=== PATIENT | female | born 1945 | race Caucasian/White ===

== ENCOUNTER 2016-09-14 06:55 | Emergency (ER) | payer MEDICARE, OTHER ==
[2016-09-14] MEDS ORDERED: NOREPINEPHRINE 4 MG/4 ML AMP ONE (06:56)
[2016-09-14] MEDS ORDERED: EPINEPHrine 1MG/10ML SYRINGE 1.5IN ONE (06:56)
[2016-09-14] MEDS ORDERED: SODIUM BICARBONATE 4.2% INJ 10 ML SYRINGE ONE (06:56)
[2016-09-14] MEDS ORDERED: CALCIUM CHLORIDE 10% 1 GM/10 ML SYR ONE (06:56)
[2016-09-14 07:26] LABS: ABG BASE EXCESS -30.7 (-2.0-2.0); ABG DEVICE NASAL CANN; ABG HCO3 7.5 MEQ/L (22.0-26.0); ABG PARTIAL PRESSURE O2 120.3 mmHg (75.0-100.0); ABG TOTAL CO2 9.8 MEQ/L (23.0-31.0)
[2016-09-14] MEDS ORDERED: PHENYLEPHRINE INJ 10MG/ML VIAL (J2370) As Ordered ONE (07:28)
[2016-09-14 07:29] LABS: ABG PARTIAL PRESSURE CO2 74.9 mmHg (35.0-45.0); ABG pH (ARTERIAL) 6.617 UNITS (7.350-7.450)
[2016-09-14 07:43] LABS: CALCIUM LEVEL 8.1 MG/DL (8.8-10.2); CREATININE FOR GFR 1.19 MG/DL (0.55-1.02); GLOMERULAR FILTRATION RATE 47.6 (>39); POTASSIUM SERUM 3.9 MEQ/L (3.5-5.1)
[2016-09-14] MEDS ORDERED: EPINEPHrine INJ 1 MG/ML 1ML VIAL/AMP As Ordered ONE (07:46)
--- NOTE | 2016-09-14 08:00 | REP ---
Clinical: Chest pain. Comparison: 10/29/2012. Findings: Endotracheal tube is approximately 4 cm above the dee. Right upper lobe and right perihilar opacities are appreciated along with scattered left perihilar and basilar atelectasis suggested. No obvious effusion. No pneumothorax. Skeletal structures are intact. Impression: Endotracheal tube in satisfactory position. Right upper lobe and right perihilar opacities/consolidations left perihilar and left basilar atelectasis. Signed by Deric Reddy MD 09/14/2016 07:52 A
[2016-09-14 08:05] LABS: DIFF SLIDE NUMBER 126; MEAN CORPUSCULAR HEMOGLOBIN 30.1 pg (27.0-33.0); MEAN CORPUSCULAR HGB CONC 27.8 g/dl (32.0-36.5); MEAN CORPUSCULAR VOLUME 108.5 fl (80.0-96.0); PLATELET COUNT, AUTOMATED 195 k/mm3 (150-450); RED CELL DISTRIBUTION WIDTH 12.7 % (11.5-14.5)
[2016-09-14] MEDS ORDERED: FUROSEMIDE 20 MG/2 ML VIAL (J1940) As Ordered ONE (08:08)
[2016-09-14] MEDS ORDERED: HumuLIN R (REGULAR) INSULIN (NovoLIN R) **100U/ML** PER UNIT As Ordered ONE (08:09)
--- NOTE | 2016-09-14 08:51 | EDDOCDS ---
Physician Documentation [facility] Name: Shell Deal Age: 70 yrs Sex: Female : 1945 Arrival Date: 09/14/2016 Time: 06:55 Bed 2 Private MD: Disposition: 09/14/16 08:37 Transfer ordered to [facility]. Diagnosis are Certain current complications following ST elevation (STEMI) and non-ST elevation (NSTEMI) myocardial infarction (within the 28 day period), Cardiogenic shock, Respiratory arrest, Hyperglycemia, unspecified, Acute diastolic (congestive) heart failure. - Reason for transfer: Higher level of care. - Accepting physician is Dr. Aleman. - Condition is Critical. - Problem is new. - Symptoms have worsened. Historical: - Allergies: Unable to obtain; - Home Meds: 1. Unknown - PMHx: Unable to obtain; - PSHx: Unable to obtain; - Social history: Smoking status: unknown if patient ever smoked tobacco. Not able to communicate due to their condition. - Family history: Not pertinent. - : Unable to assess if pt is on anticoagulants. Unable to Verify Home Med List with the patient / caregiver. - Exposure Risk Screening:: Unable to Assess. Vital Signs: 09/14 07:05 BP 134 / 61; mlc 07:19 Weight 89.36 kg / 197.01 lbs; mcp 07:23 BP 37 / 21 (auto/); mlc 07:23 Pulse 69 MON; mlc 07:25 BP 41 / 26 (auto/); mlc 07:26 Pulse 63 MON; mlc 07:27 BP 40 / 23 (auto/); mlc 07:27 Pulse 55 MON; mlc 07:31 BP 57 / 38 (auto/); mlc 07:31 Pulse 71 MON; Pulse Ox 91% ; mlc 07:33 BP 70 / 43 (auto/); mlc 07:34 Pulse 81 MON; Pulse Ox 89% ; mlc 07:36 BP 173 / 86 (auto/); mlc 07:36 Pulse 92 MON; Pulse Ox 86% ; mlc 07:37 Pulse 97 MON; Pulse Ox 92% ; mlc 07:41 BP 139 / 63 (auto/); ml6 07:41 Pulse 95 MON; Resp 16; Pulse Ox 79% on 100% FiO2 ETT vent; ml6 07:46 BP 126 / 60 (auto/); ml6 07:46 Pulse 89 MON; Resp 18; Pulse Ox 70% on 100% FiO2 ETT vent; ml6 07:51 BP 112 / 52 (auto/); ml6 07:51 Pulse 88 MON; Resp 16; Pulse Ox 65% on 100% FiO2 ETT vent; ml6 07:56 BP 85 / 50 (auto/); ml6 07:56 Pulse 82 MON; Resp 16; Pulse Ox 62% on 100% FiO2 ETT vent; ml6 08:01 BP 51 / 35 (auto/); ml6 08:01 Pulse 74 MON; Resp 16; Pulse Ox 61% on 100% FiO2 ETT vent; ml6 08:11 BP 192 / 86 (auto/); ml6 08:11 Pulse 108 MON; Resp 16; Pulse Ox 85% on 100% FiO2 ETT vent; ml6 08:33 BP 160 / 71 (auto/); Pulse 100; Resp 18; Pulse Ox 74% on 100% FiO2 ETT vent; Pain 0/10; ml6 Procedures: 08:37 Intubation: Ventilated with 100% NRB prior to procedure. Intubated orally using # 3 fg Gilberto blade with 7.0 Fr. ETT. was successful on first attempt. Ventilated with Ambu bag. ventilator. Cricoid pressure applied during procedure. Placement verified by CXR, CO2 detector w/ + color change, auscultating bilateral breath sounds, Patient tolerated well. MDM: 07:06 NS 0.9% 1000 ml IV at 100 mL/hr continuous ordered. fg 07:06 Children'S Counselor/Pulse Ox/q 30 min VS ordered. fg 07:06 IV Saline Lock ordered. fg 07:06 Rhythm Strip to chart ordered. fg 07:06 Undress patient appropriately for examination ordered. fg 07:07 B-Type Natiuretic Peptide Ordered. EDMS 07:07 Basic Metabolic Profile Ordered. EDMS 07:07 CBC with Diff Ordered. EDMS 07:07 Cardiac Injury Profile Ordered. EDMS 07:07 Partial Thromboplastin Time Ordered. EDMS 07:07 Troponin Ordered. EDMS 07:08 portable chest Ordered. EDMS 07:08 ECG WITH READING ER PHYS+CARDIAG ordered. EDMS 07:19 Call Respiratory ordered. mcp 07:19 Call Respiratory complete. mcp 07:20 -Arterial Blood Gas Ordered. EDMS 07:42 Norepinephrine (8mg/500mL D5W, 2mcg/min) 2 mcg/min IVPB at calculated rate continuous; ml6 Titrate 2mcg/min q5min to maintain SBP > 90mmHg. Max rate 20 mcg/min ordered. 07:42 Phenylephrine (50mg /500cc NS) 10 mcg/min IV at calculated rate continuous; Titrate ml6 10mcg/min q5min to keep SBP>90mmHg. Max rate 150mcg/min ordered. 07:42 EPINEPHrine (1:10,000) 1 mg IVP once ordered. ml6 07:58 EPINEPHrine Drip (4mcg/mL concentration, 2-10 mcg/min) 1 mg IV at 2 mcg/min continuous; ml6 Remove 16cc from 250cc bag of NS and inject 1mL of 1:1000 epinephrine ordered. 08:08 Insulin Regular Human 10 units IVP once ordered. fg 08:08 Furosemide 20 mg IVP once ordered. fg 08:11 EPINEPHrine (1:10,000) 1 mg IVP once ordered. mk4 08:17 Financial registration complete. lg Administered Medications: 06:57 Drug: EPINEPHrine 1 mg [epinephrine 0.1 mg/mL injection syringe (10 mL)] Route: IVP; mlc Site: left antecubital; 07:00 Drug: NS 0.9% 1000 ml [sodium chloride 0.9 % intravenous solution] Route: IV; Rate: 100 ml6 mL/hr; Site: right forearm; 07:00 Drug: EPINEPHrine 1 mg [epinephrine 0.1 mg/mL injection syringe (10 mL)] Route: IVP; mlc Site: left antecubital; 07:07 Drug: Norepinephrine (8mg/500mL D5W, 2mcg/min) 2 mcg/min [norepinephrine bitartrate 1 ml6 mg/mL intravenous solution] Route: IVPB; Rate: calculated rate; Site: right antecubital; 07:16 CANCELLED (Other Intervention Used): Aspirin Chewable Tablet 324 mg PO once [facility] 07:29 Drug: EPINEPHrine 1 mg [epinephrine HCl (PF) 1 mg/mL (1 mL) intravenous solution (1 ml6 mL)] Route: IVP; Site: right forearm; 07:50 Drug: EPINEPHrine Drip (4mcg/mL concentration, 2-10 mcg/min) 1 mg [epinephrine HCl (PF) ml6 1 mg/mL (1 mL) intravenous solution] Route: IV; Rate: 2 mcg/min; Site: left antecubital; 08:05 Drug: EPINEPHrine 1 mg [epinephrine HCl (PF) 1 mg/mL (1 mL) intravenous solution (1 mk4 mL)] Route: IVP; Site: right antecubital; 08:12 Drug: Insulin Regular Human 10 units [insulin regular human 100 unit/mL injection mk4 solution (0.1 mL)] {Co-Signature: mlc (Winifred Luong RN).} Route: IVP; Site: left antecubital; 08:12 Drug: Furosemide 20 mg [furosemide 10 mg/mL injection solution (2 mL)] Route: IVP; mk4 Site: left antecubital; 08:44 Not Given (Other Intervention Used): Phenylephrine (50mg /500cc NS) 10 mcg/min IV at ml6 calculated rate continuous; Titrate 10mcg/min q5min to keep SBP>90mmHg. Max rate 150mcg/min Signatures: Dispatcher [employer] Angella Melissa RN Silvia Joy mcp, Reg Reg lg Lowe, Matthew, RN RN ml6 Stacey aMrie RN RN mk4 Booth, Mandy, RN RN mlc Gill, Frances, MD MD Winifred chen The chart was reviewed and I authenticate all verbal orders and agree with the evaluation and treatment provided.Corrections: (The following items were deleted from the chart) 07:16 07:06 Aspirin Chewable Tablet 324 mg PO once ordered. mlc MTDD
--- NOTE | 2016-09-14 08:51 | EDDOCDS ---
Nurse's Notes [facility] Name: Shell Deal Age: 70 yrs Sex: Female : 1945 Arrival Date: 09/14/2016 Time: 06:55 Bed 2 Private MD: Diagnosis: Certain current complications following ST elevation (STEMI) and non-ST elevation (NSTEMI) myocardial infarction (within the 28 day period);Cardiogenic shock;Respiratory arrest;Hyperglycemia, unspecified;Acute diastolic (congestive) heart failure Presentation: 09/14 07:12 Presenting complaint: EMS states: pt felt SOB starting at approx 06:00 this AM. pt was mlc conscious upon EMS arrival but was altered mental status. EMS states rhythm was atrial flutter with RVR. when pt was being removed from house, pt went into cardiac arrest. CPR in progress upon arrival to ED. Method of arrival: Ambulance: direct to room. Care prior to arrival: IV initiated. Compressions began prior to arrival. 07:12 Acuity: KAYLEE Level 1 [facility] 07:29 Presenting complaint: ekg monitor tech shows bradycardia at 38-40, cpr began epi 1 mg mk4 given at 0730 cpr continued for 2 min. 07:38 Presenting complaint: pulse and rthym check, carotid pulse present , cardiac activity mk4 onultrasound per Dr Lebron, CPR stopped at this time. 07:38 Presenting complaint:. mk4 07:48 Suicide/Homicide risk assessment- Unable to assess. Status: Unknown if service [facility] member or dependent. Transition of care: patient was not received from another setting of care. Historical: - Allergies: Unable to obtain; - Home Meds: 1. Unknown - PMHx: Unable to obtain; - PSHx: Unable to obtain; - Social history: Smoking status: unknown if patient ever smoked tobacco. Not able to communicate due to their condition. - Family history: Not pertinent. - : Unable to assess if pt is on anticoagulants. Unable to Verify Home Med List with the patient / caregiver. - Exposure Risk Screening:: Unable to Assess. Screenin:37 Abuse/DV Screen: Unable to Assess. Nutritional screening: Unable to Assess. [facility] 07:44 Screening information is obtained from family members. Fall risk: Unable to Assess. [facility] Assistance ADL's: unable to assess. Advance Directives: There is no active DNR order. home support is adequate. Assessment: 06:54 CPR assessment: unresponsive, no respiratory effort, Ambu ventilation, cyanotic. mlc 06:54 General: pt arrived to ED. mlc 06:57 General: CPR continued. mlc 06:58 Cardiac rhythm is atrial flutter with RVR. mlc 06:58 General: no pulses palpable at this time. mlc 06:59 General: CPR resumed at this time. mlc 06:59 General: 1st attempt at intubation, successful. positive color change on CO2 detector. mlc 7 Fr, 20 at lip line. . 07:02 General: CPR continued at this time. mlc 07:03 Cardiac rhythm is Sinus Tachycardia. mlc 07:03 Cardiac rhythm is Sinus Tachycardia. General: radial and carotid pulses palpable . mlc 07:15 Cardiovascular: Rhythm is irregular with long pauses between beats. pulses palpable at [facility] this time. 07:39 General: family at bedside . Cardiovascular: Rhythm is with PVC. 4 08:05 Cardiovascular: Rhythm is 38-40 , ep[i x1 given and cpr started. mk4 08:07 General: rhythm check , pulses carotid and radial present , cardiac activity on mk4 ultrasound by Dr Lebron. 08:32 General: care transferred to life flight crew. ml6 08:32 General: Appears obese. Pain: Denies pain. Neurological: Level of Consciousness is ml6 unresponsive. Cardiovascular: Rhythm is irregular. Vital Signs: 07:05 BP 134 / 61; mlc 07:19 Weight 89.36 kg; mcp 07:23 BP 37 / 21 (auto/); mlc 07:23 Pulse 69 MON; mlc 07:25 BP 41 / 26 (auto/); mlc 07:26 Pulse 63 MON; mlc 07:27 BP 40 / 23 (auto/); mlc 07:27 Pulse 55 MON; mlc 07:31 BP 57 / 38 (auto/); mlc 07:31 Pulse 71 MON; Pulse Ox 91% ; mlc 07:33 BP 70 / 43 (auto/); mlc 07:34 Pulse 81 MON; Pulse Ox 89% ; mlc 07:36 BP 173 / 86 (auto/); mlc 07:36 Pulse 92 MON; Pulse Ox 86% ; mlc 07:37 Pulse 97 MON; Pulse Ox 92% ; mlc 07:41 BP 139 / 63 (auto/); ml6 07:41 Pulse 95 MON; Resp 16; Pulse Ox 79% on 100% FiO2 ETT vent; ml6 07:46 BP 126 / 60 (auto/); ml6 07:46 Pulse 89 MON; Resp 18; Pulse Ox 70% on 100% FiO2 ETT vent; ml6 07:51 BP 112 / 52 (auto/); ml6 07:51 Pulse 88 MON; Resp 16; Pulse Ox 65% on 100% FiO2 ETT vent; ml6 07:56 BP 85 / 50 (auto/); ml6 07:56 Pulse 82 MON; Resp 16; Pulse Ox 62% on 100% FiO2 ETT vent; ml6 08:01 BP 51 / 35 (auto/); ml6 08:01 Pulse 74 MON; Resp 16; Pulse Ox 61% on 100% FiO2 ETT vent; ml6 08:11 BP 192 / 86 (auto/); ml6 08:11 Pulse 108 MON; Resp 16; Pulse Ox 85% on 100% FiO2 ETT vent; ml6 08:33 BP 160 / 71 (auto/); Pulse 100; Resp 18; Pulse Ox 74% on 100% FiO2 ETT vent; Pain 0/10; ml6 Vitals: 07:48 Log In Time N/A - ambulance arrival. [facility] ED Course: 06:56 Patient visited by Cat Lewis, Computer Typesetter. deg 06:56 Winifred Luong,RN is Primary Nurse. deg 06:56 Patient moved to Waiting deg 06:56 Patient moved to 2 deg 06:58 Maintain field IV. Dressing intact. Site clean & dry. Gauge & site: 18g left AC. mlc 06:59 Intubation: 7.0 Fr. ETT placed orally. Performed by Dr. Lebron Successful on first mlc attempt. Placement verified by CO2 detector w/ + color change, auscultating bilateral breath sounds, Ventilated with Ambu bag. 07:00 Inserted saline lock: 16 gauge in right forearm. ml6 07:01 Inserted saline lock: 18 gauge in right antecubital area and blood collected. by Mita Lauren RN. 07:05 Rhea Lebron MD is Attending Physician. fg 07:05 Patient visited by Rhea Lebron MD. fg 07:10 Patient visited by Baljeet Whittaker. dem1 07:10 EKG done. (by ED staff). Reviewed by Rhea Lebron MD. dem1 07:25 Notified attending ED physician of Critical lab value. ABG--pH--6.617, PCO2 74.9. mcp 07:59 Liu cath inserted 16 Fr. Balloon inflated. To gravity drainage. returned clear yellow mcp urine. Patient tolerated well. 08:07 Patient visited by Stacey Marie RN. 4 08:12 NGT inserted 18 Fr. Via orogastric route Placement verified. oral gastric tube. mk4 08:14 portable chest Returned. EDMS Administered Medications: 06:57 Drug: EPINEPHrine 1 mg [epinephrine 0.1 mg/mL injection syringe (10 mL)] Route: IVP; [facility] Site: left antecubital; 07:00 Drug: NS 0.9% 1000 ml [sodium chloride 0.9 % intravenous solution] Route: IV; Rate: 100 ml6 mL/hr; Site: right forearm; 07:00 Drug: EPINEPHrine 1 mg [epinephrine 0.1 mg/mL injection syringe (10 mL)] Route: IVP; [facility] Site: left antecubital; 07:07 Drug: Norepinephrine (8mg/500mL D5W, 2mcg/min) 2 mcg/min [norepinephrine bitartrate 1 ml6 mg/mL intravenous solution] Route: IVPB; Rate: calculated rate; Site: right antecubital; 07:16 CANCELLED (Other Intervention Used): Aspirin Chewable Tablet 324 mg PO once [facility] 07:29 Drug: EPINEPHrine 1 mg [epinephrine HCl (PF) 1 mg/mL (1 mL) intravenous solution (1 ml6 mL)] Route: IVP; Site: right forearm; 07:50 Drug: EPINEPHrine Drip (4mcg/mL concentration, 2-10 mcg/min) 1 mg [epinephrine HCl (PF) ml6 1 mg/mL (1 mL) intravenous solution] Route: IV; Rate: 2 mcg/min; Site: left antecubital; 08:05 Drug: EPINEPHrine 1 mg [epinephrine HCl (PF) 1 mg/mL (1 mL) intravenous solution (1 mk4 mL)] Route: IVP; Site: right antecubital; 08:12 Drug: Insulin Regular Human 10 units [insulin regular human 100 unit/mL injection mk4 solution (0.1 mL)] {Co-Signature: mlc (Winifred Luong RN).} Route: IVP; Site: left antecubital; 08:12 Drug: Furosemide 20 mg [furosemide 10 mg/mL injection solution (2 mL)] Route: IVP; 4 Site: left antecubital; 08:44 Not Given (Other Intervention Used): Phenylephrine (50mg /500cc NS) 10 mcg/min IV at ml6 calculated rate continuous; Titrate 10mcg/min q5min to keep SBP>90mmHg. Max rate 150mcg/min RT: 07:10 Intubation: Performed by Dr. stephanie capellan. Cricoid pressure applied during procedure. kt1 Successful on first attempt. Placement verified by CXR, CO2 detector w/ + color change, auscultating bilateral breath sounds, Ventilated with Ambu bag. 07:15 Ventilation: Ventilator Settings Assist Control, FiO2 95% Resp Rate: 18, Tidal Volume kt1 430ml PEEP: 5. 07:20 ABG's drawn from right brachial artery pressure held for 5 minutes no bleeding noted kt1 pressure bandage applied specimen sent pt. tolerated well. 08:35 CPR Time: 100Minutes. kt1 Order Results: Lab Order: B-Type Natiuretic Peptide; SPEC'M 09/14/16 07:05 Test: BRAIN NATRIURETIC PEPTIDE; Value: < 5.0; Range: <100; Units: PG/ML; Status: F Lab Order: Basic Metabolic Profile; SPEC'M 09/14/16 07:05 Test: GLUCOSE, FASTING; Value: 824; Range: 83-110; Abnormal: Above upper panic limits; Units: MG/DL; Status: F Test: BLOOD UREA NITROGEN; Value: 14; Range: 7-18; Units: MG/DL; Status: F Test: CREATININE FOR GFR; Value: 1.19; Range: 0.55-1.02; Abnormal: Above high normal; Units: MG/DL; Status: F Test: GLOMERULAR FILTRATION RATE; Value: 47.6; Range: >39; Status: F Test: SODIUM LEVEL; Value: 135; Range: 136-145; Abnormal: Below low normal; Units: MEQ/L; Status: F Test: POTASSIUM SERUM; Value: 3.9; Range: 3.5-5.1; Units: MEQ/L; Status: F Test: CHLORIDE LEVEL; Value: 97; Range: 98-107; Abnormal: Below low normal; Units: MEQ/L; Status: F Test: CARBON DIOXIDE LEVEL; Value: 17; Range: 21-32; Abnormal: Below low normal; Units: MEQ/L; Status: F Test: ANION GAP; Value: 21; Range: 8-16; Abnormal: Above high normal; Units: MEQ/L; Status: F Test: CALCIUM LEVEL; Value: 8.1; Range: 8.8-10.2; Abnormal: Below low normal; Units: MG/DL; Status: F Test Note: ; Units are mL/min/1.73 m2 Chronic Kidney Disease Staging per NKF: Stage I & II GFR >=60 Normal to Mildly Decreased Stage III GFR 30-59 Moderately Decreased Stage IV GFR 15-29 Severely Decreased Stage V GFR <15 Very Little GFR Left ESRD GFR <15 on GYM ATTENDANT Lab Order: Cardiac Injury Profile; [facility]09/14/16 07:05 Test: CPK CREATINE PHOSPHOKINASE; Value: 60; Range: 26-192; Units: U/L; Status: F Test: CK-MB VALUE MASS; Value: 1.7; Range: 0.0-3.6; Units: NG/ML; Status: F Test: MB/CK RELATIVE INDEX; Value: 2.83; Range: < OR =4; Status: F Test Note: ; DIAGNOSIS CRITERIA MMB ng/ml Relative Index (RI) NON-AMI < or = 5 N/A KWAN ZONE > 5 < or = 4 AMI > 5 > 4 Lab Order: Partial Thromboplastin Time; 09/14/16 07:05 Test: PARTIAL THROMBOPLASTIN TIME; Value: 43.4; Range: 26.6-37.1; Abnormal: Above high normal; Units: SECONDS; Status: F Lab Order: Troponin; 09/14/16 07:05 Test: TROPONIN I; Value: 0.03; Range: < 0.10; Units: NG/ML; Status: F Test Note: ; Troponin I Reference Interval for [employer] LOCI: 99th Percentile= 0.00-0.045 ng/ml Risk Stratification: <= 0.10 ng/ml Decreased Risk for Adverse Clinical Events. 0.10-1.50 ng/ml Increased Risk for Adverse Clinical Events. Evaluation of additional criterion and/or repeat testing in 2-6 hours is suggested to rule out myocardial damage. >= 1.50 ng/ml Indicative of Myocardial Injury. Lab Order: -Arterial Blood Gas; 09/14/16 07:19 Test: ABG pH (ARTERIAL); Value: 6.617; Range: 7.350-7.450; Abnormal: Critical Low; Units: UNITS; Status: F Test: ABG PARTIAL PRESSURE CO2; Value: 74.9; Range: 35.0-45.0; Abnormal: Above upper panic limits; Units: mmHg; Status: F Test: ABG PARTIAL PRESSURE O2; Value: 120.3; Range: 75.0-100.0; Abnormal: Above high normal; Units: mmHg; Status: F Test: ABG TOTAL CO2; Value: 9.8; Range: 23.0-31.0; Abnormal: Below low normal; Units: MEQ/L; Status: F Test: ABG HCO3; Value: 7.5; Range: 22.0-26.0; Abnormal: Below low normal; Units: MEQ/L; Status: F Test: ABG BASE EXCESS; Value: -30.7; Range: -2.0-2.0; Abnormal: Below low normal; Status: F Test: ABG STANDARD HCO3; Value: 4.0; Range: 22.0-26.0; Abnormal: Below low normal; Units: MEQ/L; Status: F Test: ABG O2 SATURATION; Value: 92.7; Range: 95.0-99.0; Abnormal: Below low normal; Units: %; Status: F Test: ABG DEVICE; Value: NASAL THI; Status: F Radiology Order: portable chest Test: portable chest REASON FOR EXAMINATION: Chest Pain; Clinical: Chest pain.; ; Comparison: 10/29/2012.; ; Findings:; Endotracheal tube is approximately 4 cm above the dee.; Right upper lobe and right perihilar opacities are appreciated along with; scattered left perihilar and basilar atelectasis suggested. No obvious effusion.; No pneumothorax. Skeletal structures are intact.; ; Impression:; Endotracheal tube in satisfactory position.; Right upper lobe and right perihilar opacities/consolidations left perihilar and; left basilar atelectasis.; ; ; Signed by; Deric Reddy MD 09/14/2016 07:52 A; Outcome: 06:59 Code Team Members : Rhea Lebron MD Medication Nurse: Kenneth Harding Respiratory mlc Therapist: Jeanette Cole Other Team Members: Mita Lauren, [place]. HAMIDA Baker. HAMIDA Amador. Jason Garcia, [place]. Rhythm strips are placed in the patient chart. Outcome Resuscitation successful. 08:33 Discharge Assessment: patient administered narcotics - no. The following High Risk ml6 Discharge criteria are identified: None. Transferred to [facility]. by helicopter life net, Transfer form completed. x-rays sent w/ patient. critical. No special radiology studies were completed. Property :Personal belongings accompany Pt. 08:33 ER care complete, transfer ordered by Provider. ml6 08:50 Patient left the ED. 6 Signatures: Dispatcher [employer] EDMS Cat Lewis, Computer Typesetter Unit deg Angella Mims RN Jeanette Baker mcp, kt Philip Garcia RN RN ml Panfilo, Stacey Gallegos RN Winifred Barrett RN RN [facility] Rhea Lebron MD MD Winifred Luong RN mlc Corrections: (The following items were deleted from the chart) 07:21 07:16 CPR assessment: unresponsive, mlc mlc 07:36 06:58 General: mlc mlc 08:40 07:10 Ventilation: Ventilator Settings Assist Control, FiO2 95% Resp Rate: 18, Tidal kt1 Volume 430ml PEEP: 5. kt1 08:50 08:37 ER care complete, transfer ordered by Provider. ml6 MTDD
[2016-09-14 08:56] LABS: BANDS 1 % (< 11)
[2016-09-14 08:57] LABS: ANISOCYTOSIS 1+
--- NOTE | 2016-09-15 21:00 | ECGEPIP ---
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
--- NOTE | 2016-09-16 09:52 | EDDOCDS ---
Physician Documentation [facility] Name: Shell Deal Age: 70 yrs Sex: Female : 1945 Arrival Date: 09/14/2016 Time: 06:55 Bed 2 Private MD: Disposition: 09/14/16 08:[address] [facility]. Diagnosis are Certain current complications following ST elevation (STEMI) and non-ST elevation (NSTEMI) myocardial infarction (within the 28 day period), Cardiogenic shock, Respiratory arrest, Hyperglycemia, unspecified, Acute diastolic (congestive) heart failure. - Reason for transfer: Higher level of care. - Accepting physician is Dr. Aleman. - Condition is Critical. - Problem is new. - Symptoms have worsened. Historical: - Allergies: Unable to obtain; - Home Meds: 1. Unknown - PMHx: Unable to obtain; - PSHx: Unable to obtain; - Social history: Smoking status: unknown if patient ever smoked tobacco. Not able to communicate due to their condition. - Family history: Not pertinent. - : Unable to assess if pt is on anticoagulants. Unable to Verify Home Med List with the patient / caregiver. - Exposure Risk Screening:: Unable to Assess. Vital Signs: 09/14 07:05 BP 134 / 61; mlc 07:19 Weight 89.36 kg / 197.01 lbs; mcp 07:23 BP 37 / 21 (auto/); mlc 07:23 Pulse 69 MON; mlc 07:25 BP 41 / 26 (auto/); mlc 07:26 Pulse 63 MON; mlc 07:27 BP 40 / 23 (auto/); mlc 07:27 Pulse 55 MON; mlc 07:31 BP 57 / 38 (auto/); mlc 07:31 Pulse 71 MON; Pulse Ox 91% ; mlc 07:33 BP 70 / 43 (auto/); mlc 07:34 Pulse 81 MON; Pulse Ox 89% ; mlc 07:36 BP 173 / 86 (auto/); mlc 07:36 Pulse 92 MON; Pulse Ox 86% ; mlc 07:37 Pulse 97 MON; Pulse Ox 92% ; mlc 07:41 BP 139 / 63 (auto/); ml6 07:41 Pulse 95 MON; Resp 16; Pulse Ox 79% on 100% FiO2 ETT vent; ml6 07:46 BP 126 / 60 (auto/); ml6 07:46 Pulse 89 MON; Resp 18; Pulse Ox 70% on 100% FiO2 ETT vent; ml6 07:51 BP 112 / 52 (auto/); ml6 07:51 Pulse 88 MON; Resp 16; Pulse Ox 65% on 100% FiO2 ETT vent; ml6 07:56 BP 85 / 50 (auto/); ml6 07:56 Pulse 82 MON; Resp 16; Pulse Ox 62% on 100% FiO2 ETT vent; ml6 08:01 BP 51 / 35 (auto/); ml6 08:01 Pulse 74 MON; Resp 16; Pulse Ox 61% on 100% FiO2 ETT vent; ml6 08:11 BP 192 / 86 (auto/); ml6 08:11 Pulse 108 MON; Resp 16; Pulse Ox 85% on 100% FiO2 ETT vent; ml6 08:33 BP 160 / 71 (auto/); Pulse 100; Resp 18; Pulse Ox 74% on 100% FiO2 ETT vent; Pain 0/10; ml6 Procedures: 08:37 Intubation: Ventilated with 100% NRB prior to procedure. Intubated orally using # 3 fg Gilberto blade with 7.0 Fr. ETT. was successful on first attempt. Ventilated with Ambu bag. ventilator. Cricoid pressure applied during procedure. Placement verified by CXR, CO2 detector w/ + color change, auscultating bilateral breath sounds, Patient tolerated well. MDM: 07:06 NS 0.9% 1000 ml IV at 100 mL/hr continuous ordered. fg 07:06 Pigment Grinder/Pulse Ox/q 30 min VS ordered. fg 07:06 IV Saline Lock ordered. fg 07:06 Rhythm Strip to chart ordered. fg 07:06 Undress patient appropriately for examination ordered. fg 07:07 B-Type Natiuretic Peptide Ordered. EDMS 07:07 Basic Metabolic Profile Ordered. EDMS 07:07 CBC with Diff Ordered. EDMS 07:07 Cardiac Injury Profile Ordered. EDMS 07:07 Partial Thromboplastin Time Ordered. EDMS 07:07 Troponin Ordered. EDMS 07:08 portable chest Ordered. EDMS 07:08 ECG WITH READING ER PHYS+CARDIAG ordered. EDMS 07:19 Call Respiratory ordered. mcp 07:19 Call Respiratory complete. mcp 07:20 -Arterial Blood Gas Ordered. EDMS 07:42 Norepinephrine (8mg/500mL D5W, 2mcg/min) 2 mcg/min IVPB at calculated rate continuous; ml6 Titrate 2mcg/min q5min to maintain SBP > 90mmHg. Max rate 20 mcg/min ordered. 07:42 Phenylephrine (50mg /500cc NS) 10 mcg/min IV at calculated rate continuous; Titrate ml6 10mcg/min q5min to keep SBP>90mmHg. Max rate 150mcg/min ordered. 07:42 EPINEPHrine (1:10,000) 1 mg IVP once ordered. ml6 07:58 EPINEPHrine Drip (4mcg/mL concentration, 2-10 mcg/min) 1 mg IV at 2 mcg/min continuous; ml6 Remove 16cc from 250cc bag of NS and inject 1mL of 1:1000 epinephrine ordered. 08:08 Insulin Regular Human 10 units IVP once ordered. fg 08:08 Furosemide 20 mg IVP once ordered. fg 08:11 EPINEPHrine (1:10,000) 1 mg IVP once ordered. mk4 08:17 Financial registration complete. lg 08:55 DIFFERENTIAL NO CHARGE Ordered. EDMS 08:55 PLATELET ESTIMATE Ordered. EDMS 14:52 T-Sheet-- Draft Copy was scanned into [employer] and attached to record. gb 14:52 ECG/EKG was scanned into [employer] and attached to record. gb 14:54 Trend VS was scanned into [email or web address] and attached to record. gb 14:56 Rhythm Strip was scanned into [employer] and attached to record. gb Administered Medications: 06:57 Drug: EPINEPHrine 1 mg [epinephrine 0.1 mg/mL injection syringe (10 mL)] Route: IVP; mlc Site: left antecubital; 07:00 Drug: NS 0.9% 1000 ml [sodium chloride 0.9 % intravenous solution] Route: IV; Rate: 100 ml6 mL/hr; Site: right forearm; 07:00 Drug: EPINEPHrine 1 mg [epinephrine 0.1 mg/mL injection syringe (10 mL)] Route: IVP; mlc Site: left antecubital; 07:07 Drug: Norepinephrine (8mg/500mL D5W, 2mcg/min) 2 mcg/min [norepinephrine bitartrate 1 ml6 mg/mL intravenous solution] Route: IVPB; Rate: calculated rate; Site: right antecubital; 07:16 CANCELLED (Other Intervention Used): Aspirin Chewable Tablet 324 mg PO once mlc 07:29 Drug: EPINEPHrine 1 mg [epinephrine HCl (PF) 1 mg/mL (1 mL) intravenous solution (1 ml6 mL)] Route: IVP; Site: right forearm; 07:50 Drug: EPINEPHrine Drip (4mcg/mL concentration, 2-10 mcg/min) 1 mg [epinephrine HCl (PF) ml6 1 mg/mL (1 mL) intravenous solution] Route: IV; Rate: 2 mcg/min; Site: left antecubital; 08:05 Drug: EPINEPHrine 1 mg [epinephrine HCl (PF) 1 mg/mL (1 mL) intravenous solution (1 mk4 mL)] Route: IVP; Site: right antecubital; 08:12 Drug: Insulin Regular Human 10 units [insulin regular human 100 unit/mL injection mk4 solution (0.1 mL)] {Co-Signature: mlc (Winifred Luong RN).} Route: IVP; Site: left antecubital; 08:12 Drug: Furosemide 20 mg [furosemide 10 mg/mL injection solution (2 mL)] Route: IVP; mk4 Site: left antecubital; 08:44 Not Given (Other Intervention Used): Phenylephrine (50mg /500cc NS) 10 mcg/min IV at ml6 calculated rate continuous; Titrate 10mcg/min q5min to keep SBP>90mmHg. Max rate 150mcg/min Signatures: Dispatcher [employer] Angella Melissa RN RN [facility] Zoë Guardado, Reg Reg gb Silvia Rodriguez, Reg Reg lg Philip Garcia RN RN ml6 Stacey Marie RN RN mk Winifred Luong RN RN mlc Gill, Frances, MD MD fg Mandy Booth RN mlc The chart was reviewed and I authenticate all verbal orders and agree with the evaluation and treatment provided.Corrections: (The following items were deleted from the chart) 07:16 07:06 Aspirin Chewable Tablet 324 mg PO once ordered. [facility] Attachments: 14:52 T-Sheet-- Draft Copy gb 14:52 ECG/EKG Chart Complete MTDD
--- NOTE | 2016-09-16 09:52 | EDDOCDS ---
Nurse's Notes [facility] Name: Shell Tucker Age: 70 yrs Sex: Female : 1945 Arrival Date: 09/14/2016 Time: 06:55 Bed 2 Private MD: Diagnosis: Certain current complications following ST elevation (STEMI) and non-ST elevation (NSTEMI) myocardial infarction (within the 28 day period);Cardiogenic shock;Respiratory arrest;Hyperglycemia, unspecified;Acute diastolic (congestive) heart failure Presentation: 09/14 07:12 Presenting complaint: EMS states: pt felt SOB starting at approx 06:00 this AM. pt was mlc conscious upon EMS arrival but was altered mental status. EMS states rhythm was atrial flutter with RVR. when pt was being removed from house, pt went into cardiac arrest. CPR in progress upon arrival to ED. Method of arrival: Ambulance: direct to room. Care prior to arrival: IV initiated. Compressions began prior to arrival. 07:12 Acuity: KAYLEE Level 1 [facility] 07:29 Presenting complaint: phototypesetting equipment monitor shows bradycardia at 38-40, cpr began epi 1 mg mk4 given at 0730 cpr continued for 2 min. 07:38 Presenting complaint: pulse and rthym check, carotid pulse present , cardiac activity mk4 onultrasound per Dr Lebron, CPR stopped at this time. 07:38 Presenting complaint:. mk4 07:48 Suicide/Homicide risk assessment- Unable to assess. Status: Unknown if service mlc member or dependent. Transition of care: patient was not received from another setting of care. 08:15 Adult Sepsis Screening: Patient has new or worsening altered mentation (1 point). ml6 Patient's respiratory rate is less than 22. Systolic blood pressure is less than or equal to 100 (1 point). Patient has a qSOFA score of 2. No known or suspected infection- Negative Sepsis Screen. 08:15 Adult Sepsis Screening: Patient has new or worsening altered mentation (1 point). ml6 08:53 Adult Sepsis Screening: Patient has new or worsening altered mentation (1 point). ml6 Historical: - Allergies: Unable to obtain; - Home Meds: 1. Unknown - PMHx: Unable to obtain; - PSHx: Unable to obtain; - Social history: Smoking status: unknown if patient ever smoked tobacco. Not able to communicate due to their condition. - Family history: Not pertinent. - : Unable to assess if pt is on anticoagulants. Unable to Verify Home Med List with the patient / caregiver. - Exposure Risk Screening:: Unable to Assess. Screenin:37 Abuse/DV Screen: Unable to Assess. Nutritional screening: Unable to Assess. [facility] 07:44 Screening information is obtained from family members. Fall risk: Unable to Assess. [facility] Assistance ADL's: unable to assess. Advance Directives: There is no active DNR order. home support is adequate. 08:15 Abuse/DV Screen: The patient / caregiver reports he/she is: not in a situation that ml6 causes fear, pain or injury. Assessment: 06:54 CPR assessment: unresponsive, no respiratory effort, Ambu ventilation, cyanotic. [facility] 06:54 General: pt arrived to ED. [facility] 06:57 General: CPR continued. [facility] 06:58 Cardiac rhythm is atrial flutter with RVR. [facility] 06:58 General: no pulses palpable at this time. [facility] 06:59 General: CPR resumed at this time. [facility] 06:59 General: 1st attempt at intubation, successful. positive color change on CO2 detector. [facility] 7 Fr, 20 at lip line. . 07:02 General: CPR continued at this time. [facility] 07:03 Cardiac rhythm is Sinus Tachycardia. mlc 07:03 Cardiac rhythm is Sinus Tachycardia. General: radial and carotid pulses palpable . [facility] 07:15 Cardiovascular: Rhythm is irregular with long pauses between beats. pulses palpable at [facility] this time. 07:39 General: family at bedside . Cardiovascular: Rhythm is with PVC. [facility] 08:05 Cardiovascular: Rhythm is 38-40 , ep[i x1 given and cpr started. 4 08:07 General: rhythm check , pulses carotid and radial present , cardiac activity on mk4 ultrasound by Dr Lebron. 08:32 General: care transferred to life flight crew. ml6 08:32 General: Appears obese. Pain: Denies pain. Neurological: Level of Consciousness is ml6 unresponsive. Cardiovascular: Rhythm is irregular. Vital Signs: 07:05 BP 134 / 61; mlc 07:19 Weight 89.36 kg; mcp 07:23 BP 37 / 21 (auto/); mlc 07:23 Pulse 69 MON; mlc 07:25 BP 41 / 26 (auto/); mlc 07:26 Pulse 63 MON; mlc 07:27 BP 40 / 23 (auto/); mlc 07:27 Pulse 55 MON; mlc 07:31 BP 57 / 38 (auto/); mlc 07:31 Pulse 71 MON; Pulse Ox 91% ; mlc 07:33 BP 70 / 43 (auto/); mlc 07:34 Pulse 81 MON; Pulse Ox 89% ; mlc 07:36 BP 173 / 86 (auto/); mlc 07:36 Pulse 92 MON; Pulse Ox 86% ; mlc 07:37 Pulse 97 MON; Pulse Ox 92% ; mlc 07:41 BP 139 / 63 (auto/); ml6 07:41 Pulse 95 MON; Resp 16; Pulse Ox 79% on 100% FiO2 ETT vent; ml6 07:46 BP 126 / 60 (auto/); ml6 07:46 Pulse 89 MON; Resp 18; Pulse Ox 70% on 100% FiO2 ETT vent; ml6 07:51 BP 112 / 52 (auto/); ml6 07:51 Pulse 88 MON; Resp 16; Pulse Ox 65% on 100% FiO2 ETT vent; ml6 07:56 BP 85 / 50 (auto/); ml6 07:56 Pulse 82 MON; Resp 16; Pulse Ox 62% on 100% FiO2 ETT vent; ml6 08:01 BP 51 / 35 (auto/); ml6 08:01 Pulse 74 MON; Resp 16; Pulse Ox 61% on 100% FiO2 ETT vent; ml6 08:11 BP 192 / 86 (auto/); ml6 08:11 Pulse 108 MON; Resp 16; Pulse Ox 85% on 100% FiO2 ETT vent; ml6 08:33 BP 160 / 71 (auto/); Pulse 100; Resp 18; Pulse Ox 74% on 100% FiO2 ETT vent; Pain 0/10; ml6 Vitals: 07:48 Log In Time N/A - ambulance arrival. [facility] ED Course: 06:56 Patient visited by Cat Leiws, 6Th Grade Teacher. deg 06:56 Winifred Luong,RN is Primary Nurse. deg 06:56 Patient moved to Waiting deg 06:56 Patient moved to 2 deg 06:58 Maintain field IV. Dressing intact. Site clean & dry. Gauge & site: 18g left AC. mlc 06:59 Intubation: 7.0 Fr. ETT placed orally. Performed by Dr. Lebron Successful on first mlc attempt. Placement verified by CO2 detector w/ + color change, auscultating bilateral breath sounds, Ventilated with Ambu bag. 07:00 Inserted saline lock: 16 gauge in right forearm. ml6 07:01 Inserted saline lock: 18 gauge in right antecubital area and blood collected. by Mita Lauren RN. 07:05 Rhea Lebron MD is Attending Physician. fg 07:05 Patient visited by Rhea Lebron MD. fg 07:10 Patient visited by Baljeet Whittaker. dem1 07:10 EKG done. (by ED staff). Reviewed by Rhea Lebron MD. dem1 07:25 Notified attending ED physician of Critical lab value. ABG--pH--6.617, PCO2 74.9. mcp 07:59 Liu cath inserted 16 Fr. Balloon inflated. To gravity drainage. returned clear yellow mcp urine. Patient tolerated well. 08:07 Patient visited by Stacey Marie RN. mk4 08:12 NGT inserted 18 Fr. Via orogastric route Placement verified. oral gastric tube. mk4 08:14 portable chest Returned. EDMS 08:15 The patient / caregiver is instructed regarding the plan of care and ED course. ml6 08:15 No procedures done that require assistance. ml6 14:52 T-Sheet-- Draft Copy was scanned into [employer] and attached to record. gb 14:52 ECG/EKG was scanned into [employer] and attached to record. gb 14:54 Trend VS was scanned into [employer] and attached to record. gb 14:56 Rhythm Strip was scanned into [employer] and attached to record. gb 02 21:17 EKG-ADULT Returned. EDMS Administered Medications: 09/14 06:57 Drug: EPINEPHrine 1 mg [epinephrine 0.1 mg/mL injection syringe (10 mL)] Route: IVP; mlc Site: left antecubital; 07:00 Drug: NS 0.9% 1000 ml [sodium chloride 0.9 % intravenous solution] Route: IV; Rate: 100 ml6 mL/hr; Site: right forearm; 07:00 Drug: EPINEPHrine 1 mg [epinephrine 0.1 mg/mL injection syringe (10 mL)] Route: IVP; mlc Site: left antecubital; 07:07 Drug: Norepinephrine (8mg/500mL D5W, 2mcg/min) 2 mcg/min [norepinephrine bitartrate 1 ml6 mg/mL intravenous solution] Route: IVPB; Rate: calculated rate; Site: right antecubital; 07:16 CANCELLED (Other Intervention Used): Aspirin Chewable Tablet 324 mg PO once [facility] 07:29 Drug: EPINEPHrine 1 mg [epinephrine HCl (PF) 1 mg/mL (1 mL) intravenous solution (1 ml6 mL)] Route: IVP; Site: right forearm; 07:50 Drug: EPINEPHrine Drip (4mcg/mL concentration, 2-10 mcg/min) 1 mg [epinephrine HCl (PF) ml6 1 mg/mL (1 mL) intravenous solution] Route: IV; Rate: 2 mcg/min; Site: left antecubital; 08:05 Drug: EPINEPHrine 1 mg [epinephrine HCl (PF) 1 mg/mL (1 mL) intravenous solution (1 mk4 mL)] Route: IVP; Site: right antecubital; 08:12 Drug: Insulin Regular Human 10 units [insulin regular human 100 unit/mL injection mk4 solution (0.1 mL)] {Co-Signature: mlc (Winifred Luong RN).} Route: IVP; Site: left antecubital; 08:12 Drug: Furosemide 20 mg [furosemide 10 mg/mL injection solution (2 mL)] Route: IVP; mk4 Site: left antecubital; 08:44 Not Given (Other Intervention Used): Phenylephrine (50mg /500cc NS) 10 mcg/min IV at ml6 calculated rate continuous; Titrate 10mcg/min q5min to keep SBP>90mmHg. Max rate 150mcg/min Attachments: 14:54 Trend VS gb 14:56 Rhythm Strip gb RT: 07:10 Intubation: Performed by placed orally. Cricoid pressure applied during procedure. kt1 Successful on first attempt. Placement verified by CXR, CO2 detector w/ + color change, auscultating bilateral breath sounds, Ventilated with Ambu bag. 07:15 Ventilation: Ventilator Settings Assist Control, FiO2 95% Resp Rate: 18, Tidal Volume kt1 430ml PEEP: 5. 07:20 ABG's drawn from right brachial artery pressure held for 5 minutes no bleeding noted kt1 pressure bandage applied specimen sent pt. tolerated well. 08:35 CPR Time: 100Minutes. kt1 Order Results: Lab Order: B-Type Natiuretic Peptide; SPEC'M 09/14/16 07:05 Test: BRAIN NATRIURETIC PEPTIDE; Value: < 5.0; Range: <100; Units: PG/ML; Status: F Lab Order: Basic Metabolic Profile; SPEC'09/14/16 07:05 Test: GLUCOSE, FASTING; Value: 824; Range: 83-110; Abnormal: Above upper panic limits; Units: MG/DL; Status: F Test: BLOOD UREA NITROGEN; Value: 14; Range: 7-18; Units: MG/DL; Status: F Test: CREATININE FOR GFR; Value: 1.19; Range: 0.55-1.02; Abnormal: Above high normal; Units: MG/DL; Status: F Test: GLOMERULAR FILTRATION RATE; Value: 47.6; Range: >39; Status: F Test: SODIUM LEVEL; Value: 135; Range: 136-145; Abnormal: Below low normal; Units: MEQ/L; Status: F Test: POTASSIUM SERUM; Value: 3.9; Range: 3.5-5.1; Units: MEQ/L; Status: F Test: CHLORIDE LEVEL; Value: 97; Range: 98-107; Abnormal: Below low normal; Units: MEQ/L; Status: F Test: CARBON DIOXIDE LEVEL; Value: 17; Range: 21-32; Abnormal: Below low normal; Units: MEQ/L; Status: F Test: ANION GAP; Value: 21; Range: 8-16; Abnormal: Above high normal; Units: MEQ/L; Status: F Test: CALCIUM LEVEL; Value: 8.1; Range: 8.8-10.2; Abnormal: Below low normal; Units: MG/DL; Status: F Test Note: ; Units are mL/min/1.73 m2 Chronic Kidney Disease Staging per NKF: Stage I & II GFR >=60 Normal to Mildly Decreased Stage III GFR 30-59 Moderately Decreased Stage IV GFR 15-29 Severely Decreased Stage V GFR <15 Very Little GFR Left ESRD GFR <15 on PRODUCT MARKETING MANAGER Lab Order: CBC with Diff; SPEC'09/14/16 07:05 Test: WHITE BLOOD COUNT; Value: 24.0; Range: 4.0-10.0; Abnormal: Above high normal; Units: K/mm3; Status: F Test: RED BLOOD COUNT; Value: 3.87; Range: 4.00-5.40; Abnormal: Below low normal; Units: M/mm3; Status: F Test: HEMOGLOBIN; Value: 11.6; Range: 12.0-16.0; Abnormal: Below low normal; Units: g/dl; Status: F Test: HEMATOCRIT; Value: 42.0; Range: 36.0-47.0; Units: %; Status: F Test: MEAN CORPUSCULAR VOLUME; Value: 108.5; Range: 80.0-96.0; Abnormal: Above high normal; Units: fl; Status: F Test: MEAN CORPUSCULAR HEMOGLOBIN; Value: 30.1; Range: 27.0-33.0; Units: pg; Status: F Test: MEAN CORPUSCULAR HGB CONC; Value: 27.8; Range: 32.0-36.5; Abnormal: Below low normal; Units: g/dl; Status: F Test: RED CELL DISTRIBUTION WIDTH; Value: 12.7; Range: 11.5-14.5; Units: %; Status: F Test: PLATELET COUNT, AUTOMATED; Value: 195; Range: 150-450; Units: k/mm3; Status: F Test Note: ; A Pathologist review of this differential can help in the evaluation of a differential diagnosis. Please order a Pathologist Review (PATHREVCOMP) if deemed necessary. Results are subject to change if a Pathologist Review is performed. Test: NEUTROPHILS; Value: 20; Range: 35-75; Abnormal: Below low normal; Units: %; Status: F Test: BANDS; Value: 1; Range: < 11; Units: %; Status: F Test: LYMPHOCYTES; Value: 73; Range: 16-52; Abnormal: Above high normal; Units: %; Status: F Test: MONOCYTES; Value: 2; Range: 0-8; Units: %; Status: F Test: MYELOCYTES; Value: 1; Range: 0-0; Abnormal: Above high normal; Units: %; Status: F Test: ATYPICAL LYMPH; Value: 3; Range: 0-5; Units: %; Status: F Test: ANISOCYTOSIS; Value: 1+; Status: F Test: MACROCYTOSIS; Value: 1+; Status: F Lab Order: Cardiac Injury Profile; SPEC'M 09/14/16 07:05 Test: CPK CREATINE PHOSPHOKINASE; Value: 60; Range: 26-192; Units: U/L; Status: F Test: CK-MB VALUE MASS; Value: 1.7; Range: 0.0-3.6; Units: NG/ML; Status: F Test: MB/CK RELATIVE INDEX; Value: 2.83; Range: < OR =4; Status: F Test Note: ; DIAGNOSIS CRITERIA MMB ng/ml Relative Index (RI) NON-AMI < or = 5 N/A KWAN [place]ONE > 5 < or = 4 AMI > 5 > 4 Lab Order: Partial Thromboplastin Time; [facility] 09/14/16 07:05 Test: PARTIAL THROMBOPLASTIN TIME; Value: 43.4; Range: 26.6-37.1; Abnormal: Above high normal; Units: SECONDS; Status: F Lab Order: Troponin; [facility] 09/14/16 07:05 Test: TROPONIN I; Value: 0.03; Range: < 0.10; Units: NG/ML; Status: F Test Note: ; Troponin I Reference Interval for [facility] LOCI: 99th Percentile= 0.00-0.045 ng/ml Risk Stratification: <= 0.10 ng/ml Decreased Risk for Adverse Clinical Events. 0.10-1.50 ng/ml Increased Risk for Adverse Clinical Events. Evaluation of additional criterion and/or repeat testing in 2-6 hours is suggested to rule out myocardial damage. >= 1.50 ng/ml Indicative of Myocardial Injury. Lab Order: -Arterial Blood Gas; [facility] 09/14/16 07:19 Test: ABG pH (ARTERIAL); Value: 6.617; Range: 7.350-7.450; Abnormal: Critical Low; Units: UNITS; Status: F Test: ABG PARTIAL PRESSURE CO2; Value: 74.9; Range: 35.0-45.0; Abnormal: Above upper panic limits; Units: mmHg; Status: F Test: ABG PARTIAL PRESSURE O2; Value: 120.3; Range: 75.0-100.0; Abnormal: Above high normal; Units: mmHg; Status: F Test: ABG TOTAL CO2; Value: 9.8; Range: 23.0-31.0; Abnormal: Below low normal; Units: MEQ/L; Status: F Test: ABG HCO3; Value: 7.5; Range: 22.0-26.0; Abnormal: Below low normal; Units: MEQ/L; Status: F Test: ABG BASE EXCESS; Value: -30.7; Range: -2.0-2.0; Abnormal: Below low normal; Status: F Test: ABG STANDARD HCO3; Value: 4.0; Range: 22.0-26.0; Abnormal: Below low normal; Units: MEQ/L; Status: F Test: ABG O2 SATURATION; Value: 92.7; Range: 95.0-99.0; Abnormal: Below low normal; Units: %; Status: F Test: ABG DEVICE; Value: NASAL THI; Status: F Lab Order: PLATELET ESTIMATE; SPEC'M 09/14/16 07:05 Test: PLATELET ESTIMATE; Value: NORMAL; Range: NORMAL; Status: F Radiology Order: portable chest Test: portable chest REASON FOR EXAMINATION: Chest Pain; Clinical: Chest pain.; ; Comparison: 10/29/2012.; ; Findings:; Endotracheal tube is approximately 4 cm above the dee.; Right upper lobe and right perihilar opacities are appreciated along with; scattered left perihilar and basilar atelectasis suggested. No obvious effusion.; No pneumothorax. 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; : 1945 Requested By: RHEA Zhou; Order Number: [id number] [place] MD: Suni Ortiz; Measurements; Intervals [place]; Rate: 150 P:; ID: 0 QRS: 95; QRSD: 125 T: -49; QT: 303; QTc: 479; Interpretive Statements; ATRIAL FIBRILLATION WITH RAPID VENTRICULAR RESPONSE; RIGHT BUNDLE BRANCH BLOCK; SEPTAL MYOCARDIAL INFARCTION, PROBABLY OLD; CONSIDER ACUTE INFERIOR UT, CLINICAL CORRELATION; NO PRIOR FOR COMPARISON; ; Electronically Signed On 09-15-2016 21:00:05 EST by Suni Ortiz; Outcome: 06:59 Code Team Members : Rhea Lebron MD Medication Nurse: Kenneth Harding Respiratory mlc Therapist: Jeanette Cole Other Team Members: Mita Lauren, [place]. Silvia Whittaker, HAMIDA. HAMIDA Amador. Jason Garcia, [place]. Rhythm strips are placed in the patient chart. Outcome Resuscitation successful. 08:33 Discharge Assessment: patient administered narcotics - no. The following High Risk ml6 Discharge criteria are identified: None. Transferred to [facility]. by helicopter life net, Transfer form completed. x-rays sent w/ patient. critical. No special radiology studies were completed. Property :Personal belongings accompany Pt. 08:33 ER care complete, transfer ordered by Provider. ml6 08:33 Patient left the ED. ml6 Signatures: Dispatcher [employer] EDMS Cat Lewis, 6Th Grade Teacher Unit deg Angella Mims, RN RN Zoë Soriano, Reg Reg Jeanette Davalos Matthew, RN RN ml6 Mack, Demeishia dem1 King, Margaret RN Winifred Barrett,RN Rhea Mederos MD MD fg Mandy Booth RN mlc Corrections: (The following items were deleted from the chart) 07:21 07:16 CPR assessment: unresponsive, mlc mlc 07:36 06:58 General: mlc mlc 08:40 07:10 Ventilation: Ventilator Settings Assist Control, FiO2 95% Resp Rate: 18, Tidal kt1 Volume 430ml PEEP: 5. kt1 08:50 08:37 ER care complete, transfer ordered by Provider. fg ml6 08:51 08:50 Patient left the ED. ml6 ml6 Chart Complete MTDD
--- NOTE | 2016-09-16 09:52 | EDDOCDS ---
Physician Documentation [facility] Name: Shell Deal Age: 70 yrs Sex: Female : 1945 Arrival Date: 09/14/2016 Time: 06:55 Bed 2 Private MD: Disposition: 09/14/16 08:37 Transfer ordered to [facility]. Diagnosis are Certain current complications following ST elevation (STEMI) and non-ST elevation (NSTEMI) myocardial infarction (within the 28 day period), Cardiogenic shock, Respiratory arrest, Hyperglycemia, unspecified, Acute diastolic (congestive) heart failure. - Reason for transfer: Higher level of care. - Accepting physician is Dr. Aleman. - Condition is Critical. - Problem is new. - Symptoms have worsened. Historical: - Allergies: Unable to obtain; - Home Meds: 1. Unknown - PMHx: Unable to obtain; - PSHx: Unable to obtain; - Social history: Smoking status: unknown if patient ever smoked tobacco. Not able to communicate due to their condition. - Family history: Not pertinent. - : Unable to assess if pt is on anticoagulants. Unable to Verify Home Med List with the patient / caregiver. - Exposure Risk Screening:: Unable to Assess. Vital Signs: 09/14 07:05 BP 134 / 61; mlc 07:19 Weight 89.36 kg / 197.01 lbs; mcp 07:23 BP 37 / 21 (auto/); mlc 07:23 Pulse 69 MON; mlc 07:25 BP 41 / 26 (auto/); mlc 07:26 Pulse 63 MON; mlc 07:27 BP 40 / 23 (auto/); mlc 07:27 Pulse 55 MON; mlc 07:31 BP 57 / 38 (auto/); mlc 07:31 Pulse 71 MON; Pulse Ox 91% ; mlc 07:33 BP 70 / 43 (auto/); mlc 07:34 Pulse 81 MON; Pulse Ox 89% ; mlc 07:36 BP 173 / 86 (auto/); mlc 07:36 Pulse 92 MON; Pulse Ox 86% ; mlc 07:37 Pulse 97 MON; Pulse Ox 92% ; mlc 07:41 BP 139 / 63 (auto/); ml6 07:41 Pulse 95 MON; Resp 16; Pulse Ox 79% on 100% FiO2 ETT vent; ml6 07:46 BP 126 / 60 (auto/); ml6 07:46 Pulse 89 MON; Resp 18; Pulse Ox 70% on 100% FiO2 ETT vent; ml6 07:51 BP 112 / 52 (auto/); ml6 07:51 Pulse 88 MON; Resp 16; Pulse Ox 65% on 100% FiO2 ETT vent; ml6 07:56 BP 85 / 50 (auto/); ml6 07:56 Pulse 82 MON; Resp 16; Pulse Ox 62% on 100% FiO2 ETT vent; ml6 08:01 BP 51 / 35 (auto/); ml6 08:01 Pulse 74 MON; Resp 16; Pulse Ox 61% on 100% FiO2 ETT vent; ml6 08:11 BP 192 / 86 (auto/); ml6 08:11 Pulse 108 MON; Resp 16; Pulse Ox 85% on 100% FiO2 ETT vent; ml6 08:33 BP 160 / 71 (auto/); Pulse 100; Resp 18; Pulse Ox 74% on 100% FiO2 ETT vent; Pain 0/10; ml6 Procedures: 08:37 Intubation: Ventilated with 100% NRB prior to procedure. Intubated orally using # 3 fg Gilberto blade with 7.0 Fr. ETT. was successful on first attempt. Ventilated with Ambu bag. ventilator. Cricoid pressure applied during procedure. Placement verified by CXR, CO2 detector w/ + color change, auscultating bilateral breath sounds, Patient tolerated well. MDM: 07:06 NS 0.9% 1000 ml IV at 100 mL/hr continuous ordered. fg 07:06 Theater Technician/Pulse Ox/q 30 min VS ordered. fg 07:06 IV Saline Lock ordered. fg 07:06 Rhythm Strip to chart ordered. fg 07:06 Undress patient appropriately for examination ordered. fg 07:07 B-Type Natiuretic Peptide Ordered. EDMS 07:07 Basic Metabolic Profile Ordered. EDMS 07:07 CBC with Diff Ordered. EDMS 07:07 Cardiac Injury Profile Ordered. EDMS 07:07 Partial Thromboplastin Time Ordered. EDMS 07:07 Troponin Ordered. EDMS 07:08 portable chest Ordered. EDMS 07:08 ECG WITH READING ER PHYS+CARDIAG ordered. EDMS 07:19 Call Respiratory ordered. mcp 07:19 Call Respiratory complete. mcp 07:20 -Arterial Blood Gas Ordered. EDMS 07:42 Norepinephrine (8mg/500mL D5W, 2mcg/min) 2 mcg/min IVPB at calculated rate continuous; ml6 Titrate 2mcg/min q5min to maintain SBP > 90mmHg. Max rate 20 mcg/min ordered. 07:42 Phenylephrine (50mg /500cc NS) 10 mcg/min IV at calculated rate continuous; Titrate ml6 10mcg/min q5min to keep SBP>90mmHg. Max rate 150mcg/min ordered. 07:42 EPINEPHrine (1:10,000) 1 mg IVP once ordered. ml6 07:58 EPINEPHrine Drip (4mcg/mL concentration, 2-10 mcg/min) 1 mg IV at 2 mcg/min continuous; ml6 Remove 16cc from 250cc bag of NS and inject 1mL of 1:1000 epinephrine ordered. 08:08 Insulin Regular Human 10 units IVP once ordered. fg 08:08 Furosemide 20 mg IVP once ordered. fg 08:11 EPINEPHrine (1:10,000) 1 mg IVP once ordered. mk4 08:17 Financial registration complete. lg 08:55 DIFFERENTIAL NO CHARGE Ordered. EDMS 08:55 PLATELET ESTIMATE Ordered. EDMS 14:52 T-Sheet-- Draft Copy was scanned into [email or web address] and attached to record. gb 14:52 ECG/EKG was scanned into [email or web address] and attached to record. gb 14:54 Trend VS [facility] and attached to record. gb 14:56 Rhythm Strip was scanned into [email or web address] and attached to record. gb Administered Medications: 06:57 Drug: EPINEPHrine 1 mg [epinephrine 0.1 mg/mL injection syringe (10 mL)] Route: IVP; mlc Site: left antecubital; 07:00 Drug: NS 0.9% 1000 ml [sodium chloride 0.9 % intravenous solution] Route: IV; Rate: 100 ml6 mL/hr; Site: right forearm; 07:00 Drug: EPINEPHrine 1 mg [epinephrine 0.1 mg/mL injection syringe (10 mL)] Route: IVP; mlc Site: left antecubital; 07:07 Drug: Norepinephrine (8mg/500mL D5W, 2mcg/min) 2 mcg/min [norepinephrine bitartrate 1 ml6 mg/mL intravenous solution] Route: IVPB; Rate: calculated rate; Site: right antecubital; 07:16 CANCELLED (Other Intervention Used): Aspirin Chewable Tablet 324 mg PO once mlc 07:29 Drug: EPINEPHrine 1 mg [epinephrine HCl (PF) 1 mg/mL (1 mL) intravenous solution (1 ml6 mL)] Route: IVP; Site: right forearm; 07:50 Drug: EPINEPHrine Drip (4mcg/mL concentration, 2-10 mcg/min) 1 mg [epinephrine HCl (PF) ml6 1 mg/mL (1 mL) intravenous solution] Route: IV; Rate: 2 mcg/min; Site: left antecubital; 08:05 Drug: EPINEPHrine 1 mg [epinephrine HCl (PF) 1 mg/mL (1 mL) intravenous solution (1 mk4 mL)] Route: IVP; Site: right antecubital; 08:12 Drug: Insulin Regular Human 10 units [insulin regular human 100 unit/mL injection mk4 solution (0.1 mL)] {Co-Signature: mlc (Winifred Luong RN).} Route: IVP; Site: left antecubital; 08:12 Drug: Furosemide 20 mg [furosemide 10 mg/mL injection solution (2 mL)] Route: IVP; mk4 Site: left antecubital; 08:44 Not Given (Other Intervention Used): Phenylephrine (50mg /500cc NS) 10 mcg/min IV at ml6 calculated rate continuous; Titrate 10mcg/min q5min to keep SBP>90mmHg. Max rate 150mcg/min Signatures: Dispatcher [employer] Angella Melissa RN RN [facility] Zoë Guardado, Reg Reg gb Silvia Rodriguez, Reg Reg lg Philip Garcia RN RN ml6 Stacey Marie RN RN mk Winifred Luong RN RN mlc Gill, Frances, MD MD fg Mandy Booth RN mlc The chart was reviewed and I authenticate all verbal orders and agree with the evaluation and treatment provided.Corrections: (The following items were deleted from the chart) 07:16 07:06 Aspirin Chewable Tablet 324 mg PO once ordered. [facility] Attachments: 14:52 T-Sheet-- Draft Copy gb 14:52 ECG/EKG Chart Complete MTDD
== END 2016-09-14 08:50 | disposition short-term general hospital (02) ==
LOC: M ED 06:55
DX: I21.19 ST elevation (STEMI) myocardial infarction involving other coronary artery of inferior wall (principal); I46.9 Cardiac arrest, cause unspecified; J81.1 Chronic pulmonary edema; I50.9 Heart failure, unspecified; E11.65 Type 2 diabetes mellitus with hyperglycemia; I10 Essential (primary) hypertension
CPT/HCPCS: 31500; 36415; 36600; 51702; 71010; 80048; 82550; 82553; 82803; 83880; 84484; 85025; 85730; 92950; 93005; 93041; 96374; 96375; 96376; 99291; J1940; J2370